=== PATIENT | female | born 2000 | race Caucasian/White ===

== ENCOUNTER 2024-06-30 10:53 | Emergency (ER) | payer MEDICAID, SELFPAY ==
[2024-06-30 10:55] VITALS: BP 119/74; PULSE 106; RESP 18; TEMP 36.6; O2SAT 100
--- NOTE | 2024-06-30 11:02 | ED.EAR ---
HPI - Ear Problem General Chief complaint: Ear Stated complaint: ear issue Time Seen by Provider: 06/30/24 11:02 Source: patient Mode of arrival: ambulatory Limitations: no limitations History of Present Illness HPI Narrative: patient is a 24-year-old female with bilateral hearing loss for the past 3 weeks. Her primary doctor put her on Omnicef for 10 days. She is still having continued problems. MD Complaint: decreased hearing ( Bilateral) Location: right ear Duration: constant Severity: moderate Relieving factors: nothing Exacerbating factors: nothing Context: Reports recent illness ( strep throat treated with Omnicef) Discharge from ear: Reports no Associated symptoms ear: other ( none) Treatment prior to arrival: other ( Omnicef) Related Data Allergies Allergy/AdvReac Type Severity Reaction Status Date / Time No Known Allergies Allergy Verified 06/30/24 10:55 Review of Systems Review of Systems: All systems reviewed & are unremarkable except as noted in HPI and below Constitutional: Constitutional: Reports no additional constitutional complaints Eyes: Eyes: Reports no additional eye complaints ENT: Reports system reviewed and no additional complaints, except as documented Cardiovascular: Cardiovascular: Reports no additional cardiovascular complaints Respiratory: Respiratory: Reports no additional respiratory complaints Gastrointestinal: Gastrointestinal: Reports no additional gastrointestinal complaints Genitourinary: Genitourinary: Reports no additional female genitourinary complaints Musculoskeletal: Musculoskeletal: Reports no additional musculoskeletal complaints Integumentary/Breasts: Skin/Breast: Reports system reviewed and no additional complaints, except as docu Neurologic: Reports system reviewed and no additional complaints, except as documented Psychiatric: Psychiatric: Reports no additional psychiatric complaints Endocrine: Endocrine: Reports no additional endocrine complaints Hematologic/Lymphatic: Hematologic/Lymphatic: Reports no additional hematologic/lymphatic complaints Allergic/Immunologic: Allergic/Immunologic: Reports no additional allergic/immunologic complaints Exam Const: General: healthy appearing Nutritional Appearance: well nourished Orientation/consciousness: patient oriented x3 Limitations: no limitations HENMT: Head: normal to inspection Ears: external ears normal, TM's abnormal bilaterally and TM abnormal wth effusion purulent, with fluid behind the TM bilateral and with loss of landmarks bilateral Face/Nose/Sinus: Normal external nose present Face and sinus: normal facial exam Mouth: Yes Normal oral and palatal mucosa present Teeth and gingiva: dentition normal Throat: posterior oropharynx normal Eyes: Conjunctivae: conjunctivae normal Pupils: Equal, round and reactive pupils present EOM: EOMs intact bilaterally Direct Ophthalmoscopy: no photophobia Neck: Neck: normal visual inspection Chest: Chest palpation & inspection: normal inspection of the chest Resp: Effort & Inspection: normal respiratory effort and not labored Auscultation: clear to auscultation bilaterally and no crackles Cardio: Rate: regular rate Rhythm: regular rhythm Heart sounds: no murmurs GI: Inspection: non-distended GI Palp: Yes Soft to palpation and No Tenderness to palpation present (GI) Auscultation: normal bowel sounds : General: Yes bladder normal to palpation Back/Spine/Pelvis: Back: no CVA tenderness Skin: General skin exam: normal color Rashes: no rashes Wounds: no wounds Neuro: General: patient oriented x3 Cranial nerves: Yes Nystagmus not present Speech: normal speech Extrem: General: normal to inspection Psych: Mental Status: mental status grossly normal Affect: normal affect Attitude: cooperative Course Vital Signs Vital signs: Vital Signs Temperature 36.6 C 06/30/24 10:55 Pulse Rate 106 H 06/30/24 10:55 Respiratory Rate 18 06/30/24 10:55 Blood Pressure 119/74 06/30/24 10:55 Pulse Oximetry 100 06/30/24 10:55 Oxygen Delivery Room Air 06/30/24 10:55 Temperature 36.6 C 06/30/24 10:55 Pulse Rate 106 H 06/30/24 10:55 Respiratory Rate 18 06/30/24 10:55 Blood Pressure 119/74 06/30/24 10:55 Pulse Oximetry 100 06/30/24 10:55 Oxygen Delivery Room Air 06/30/24 10:55 Medical Decision Making MDM Narrative Medical decision making narrative: patient is a 24-year-old female with bilateral hearing loss as well as infection of both ears over the past 3 weeks. She has continued infection in both ears and we will start another round of antibiotics ( patient failed Omnicef). Patient is currently 14 weeks and with [employer] studies it appears Augmentin is acceptable at this point in the . Vital Signs Vital Signs: Vital Signs Temperature 36.6 C 06/30/24 10:55 Pulse Rate 106 H 06/30/24 10:55 Respiratory Rate 18 06/30/24 10:55 Blood Pressure 119/74 06/30/24 10:55 Pulse Oximetry 100 06/30/24 10:55 Oxygen Delivery Room Air 06/30/24 10:55 Temperature 36.6 C 06/30/24 10:55 Pulse Rate 106 H 06/30/24 10:55 Respiratory Rate 18 06/30/24 10:55 Blood Pressure 119/74 06/30/24 10:55 Pulse Oximetry 100 06/30/24 10:55 Oxygen Delivery Room Air 06/30/24 10:55 Discharge Plan Discharge Clinical Impression: Otitis media Patient Disposition: Home, Self-Care Condition: Stable Instructions: Antibiotic Form, Ear Infection (ED) Prescriptions: New amoxicillin-pot clavulanate 875-125 mg tablet 1 tablet PO BID 10 Days Qty: 20 0RF Follow-up/Referrals: Cash Perales M.D. [Primary Care Provider] - Time of Disposition: 11:19
[2024-06-30 11:38] VITALS: BP 119/74; PULSE 106; RESP 18; TEMP 36.6; O2SAT 100
== END 2024-06-30 11:38 | disposition home or self-care (01) ==
LOC: CHSED 11:30
PROVIDERS: Emergency Provider Emergency Medicine; PCP Family Medicine
DX: H66.93 Otitis media, unspecified, bilateral (principal)
CPT/HCPCS: 99283

== ENCOUNTER 2024-07-16 19:39 | Emergency (ER) | payer OTHER, SELFPAY ==
[2024-07-16 20:07] VITALS: BP 125/84; PULSE 90; RESP 18; TEMP 36.9; O2SAT 100
--- NOTE | 2024-07-16 20:21 | ED_ITS ---
HPI - Ear Problem General Chief complaint: Ear Stated complaint: Left Ear Pain Time Seen by Provider: 07/16/24 20:10 Source: patient Mode of arrival: ambulatory Limitations: no limitations History of Present Illness HPI Narrative: 24 year old female presents to the Emergency Department with her child [who is also a patient]. Patient complains of left ear pain and problems since 06/14/24. Patient has been seen here, she has been on 2 courses of antibiotics. It was recommended she follow up with ENT, but she has not yet. MD Complaint: ear pain Location: left ear Duration: constant Severity: moderate Relieving factors: nothing Exacerbating factors: nothing Discharge from ear: Reports no Treatment prior to arrival: other (2 courses of antibiotics) Related Data Home Medications ?Medication ?Instructions ?Recorded ?Confirmed ?Last Taken ?Type [id number] 3-fat com #1 27 cap PO DAILY 07/16/24 07/16/24 History mg-1 mg-300 mg capsule Allergies Allergy/AdvReac Type Severity Reaction Status Date / Time No Known Allergies Allergy Verified 06/30/24 10:55 Review of Systems Review of Systems: All systems reviewed & are unremarkable except as noted in HPI and below Constitutional: Constitutional: Reports as per HPI, Denies chills and Denies fever(s) Eyes: Eyes: Reports as per HPI ENT: Reports system reviewed and no additional complaints, except as documented Cardiovascular: Cardiovascular: Reports as per HPI Respiratory: Respiratory: Reports as per HPI, Denies cough and Denies dyspnea Gastrointestinal: Gastrointestinal: Reports as per HPI, Denies diarrhea, Denies nausea and Denies vomiting Genitourinary: Genitourinary: Reports no additional female genitourinary complaints Musculoskeletal: Musculoskeletal: Reports no additional musculoskeletal complaints Integumentary/Breasts: Skin/Breast: Reports system reviewed and no additional complaints, except as docu Neurologic: Reports system reviewed and no additional complaints, except as documented Endocrine: Endocrine: Reports no additional endocrine complaints Hematologic/Lymphatic: Hematologic/Lymphatic: Reports no additional hematologic/lymphatic complaints Allergic/Immunologic: Allergic/Immunologic: Reports no additional allergic/immunologic complaints Exam Const: General: alert Nutritional Appearance: well nourished Orientation/consciousness: patient oriented x3 Limitations: no limitations Other: mild distress HENMT: Head: normal to inspection Ears: Abnormal EAC present edema and otic discharge and TM abnormal dull, erythematous and with fluid behind the TM Face/Nose/Sinus: Normal external nose present Face and sinus: normal facial exam Mouth: Yes Normal oral and palatal mucosa present Throat: posterior oropharynx normal Eyes: Conjunctivae: conjunctivae normal Pupils: Equal, round and reactive pupils present EOM: EOMs intact bilaterally Direct Ophthalmoscopy: no photophobia Neck: Neck: normal visual inspection, no lymphadenopathy and no meningeal signs Chest: Chest palpation & inspection: normal inspection of the chest Resp: Effort & Inspection: normal respiratory effort Auscultation: clear to auscultation bilaterally Cardio: Rate: regular rate Rhythm: regular rhythm GI: Inspection: non-distended Back/Spine/Pelvis: Back: no CVA tenderness Skin: General skin exam: normal color Rashes: no rashes Neuro: General: patient oriented x3, moves all extremities and no meningeal signs Cranial nerves: Yes Nystagmus not present Speech: normal speech Gait exam (Neuro): Normal gait present Other: grossly intact Extrem: General: normal to inspection Psych: Mental Status: mental status grossly normal Course Course Emergency Course: 24 y/o female presents to the ED c/o left ear pain since 06/14/24. Has had 2 courses of antibiotics PE: left external canal with mild erythema and small d/c, left TM mildly erythematous and dull Rx and Instructions Vital Signs Vital signs: Vital Signs Temperature 36.9 C 07/16/24 20:07 Pulse Rate 90 07/16/24 20:07 Respiratory Rate 18 07/16/24 20:07 Blood Pressure 125/84 07/16/24 20:07 Pulse Oximetry 100 07/16/24 20:07 Oxygen Delivery Room Air 07/16/24 20:07 Temperature 36.9 C 07/16/24 20:07 Pulse Rate 90 07/16/24 20:07 Respiratory Rate 18 07/16/24 20:07 Blood Pressure 125/84 07/16/24 20:07 Pulse Oximetry 100 07/16/24 20:07 Oxygen Delivery Room Air 07/16/24 20:07 Medical Decision Making Vital Signs Vital Signs: Vital Signs Temperature 36.9 C 07/16/24 20:07 Pulse Rate 90 07/16/24 20:07 Respiratory Rate 18 07/16/24 20:07 Blood Pressure 125/84 07/16/24 20:07 Pulse Oximetry 100 07/16/24 20:07 Oxygen Delivery Room Air 07/16/24 20:07 Temperature 36.9 C 07/16/24 20:07 Pulse Rate 90 07/16/24 20:07 Respiratory Rate 18 07/16/24 20:07 Blood Pressure 125/84 07/16/24 20:07 Pulse Oximetry 100 07/16/24 20:07 Oxygen Delivery Room Air 07/16/24 20:07 Discharge Plan Discharge Clinical Impression: Otitis externa, Otitis media Patient Disposition: Home, Self-Care Condition: Stable Instructions: Antibiotic Form, Swimmer's Ear (ED), Ear Infection (ED) Additional Instructions: Push fluids Tylenol 650 mg every 4 hours and Ibuprofen 600 mg every 6 hours for fever and body aches Take medications as prescribed Follow up Primary Care Physician Recommend follow up with ENT Patient Language: [place] Prescriptions: New azithromycin [Zithromax Z-Guido] 250 mg tablet See Rx Instructions .ROUTE .COMPLEX Qty: 6 0RF Rx Instructions: For 250 mg dose pack: take 500 mg today (day 1), then 250 mg for 4 days (days 2-5) [id number]-DC 3.5-10,000-1 mg/mL-unit/mL-% drops,suspension 4 drp LEFT EAR Q6H Qty: 10 0RF hydrocodone-acetaminophen 7.5-325 mg tablet 1 tablet PO Q6H PRN (Reason: pain) Qty: 10 0RF No Action [id number] 3-fat com #1 27-1-300 mg capsule PO DAILY Follow-up/Referrals: Cash Perales M.D. [Primary Care Provider] - Time of Disposition: 21:06
[2024-07-16 21:11] VITALS: BP 122/84; PULSE 88; RESP 18; O2SAT 97
== END 2024-07-16 21:11 | disposition home or self-care (01) ==
PROVIDERS: Emergency Provider Emergency Medicine; PCP Family Medicine
DX: H60.92 Unspecified otitis externa, left ear (principal); H66.92 Otitis media, unspecified, left ear
CPT/HCPCS: 99283